=== PATIENT | female | born 1995 | race Caucasian/White ===

== ENCOUNTER 2017-01-06 21:53 | Emergency (ER) | payer BC ==
--- NOTE | 2017-01-06 22:21 | EDM.PDOC ---
ED HPI GENERAL MEDICAL PROBLEM - General Chief Complaint: PERSONNEL COORDINATOR Problem Stated Complaint: 9 WEEKS/CRAMPING Time Seen by Provider: 01/06/17 22:05 Source of Information: Reports: Patient History Limitations: Reports: No Limitations - History of Present Illness INITIAL COMMENTS - FREE TEXT/NARRATIVE: HISTORY AND PHYSICAL: History of present illness: [21-year-old female 010 now presents emergency department with report of mild vaginal spotting. Patient is 9 weeks 3 days her ultrasound done by PERSONNEL COORDINATOR doctor, Dr. Hdz. Patient states she feels she spitting frequently but has no fevers chills sweats or shaking chills. She denies discharge other than spotting. No abdominal pain. Patient reports occasional pelvic cramping now resolved. Review of systems: As per history of present illness and below otherwise all systems reviewed and negative. Past medical history: As per history of present illness and as reviewed below otherwise noncontributory. Surgical history: As per history of present illness and as reviewed below otherwise noncontributory. Social history: No reported history of drug or alcohol abuse. Family history: As per history of present illness and as reviewed below otherwise noncontributory. Physical exam: HEENT: Atraumatic, normocephalic, pupils reactive, negative for conjunctival pallor or scleral icterus, mucous membranes moist, throat clear, neck supple, nontender, trachea midline. Lungs: Clear to auscultation, breath sounds equal bilaterally, chest nontender. Heart: S1S2, regular, negative for clicks, rubs, or JVD. Abdomen: Soft, nondistended, nontender. Negative for masses or hepatosplenomegaly. Negative for costovertebral tenderness. Pelvis: Stable nontender. Pelvic exam done by MOE Soria with nurse Ibarra present. Genitourinary: Deferred. Rectal: Deferred. Extremities: Atraumatic, negative for cords or calf pain. Neurovascular unremarkable. Neuro: Awake, alert, oriented. Cranial nerves II through XII unremarkable. Cerebellum unremarkable. Motor and sensory unremarkable throughout. Exam nonfocal. Diagnostics: [Urinalysis negative. Urine test positive. Quantitative hCG greater than 100. Wet prep returns positive bacterial vaginosis] Therapeutics: [] Impression: [] Plan: [Signs and symptoms consistent with threatened miscarriage. Labs consistent with bacterial vaginosis. Patient aware to do pelvic rest and follow-up with OB/ [employer] doctor one day.] Return immediately for new severe or worsening symptoms Definitive disposition and diagnosis as appropriate pending reevaluation and review of above. Lower Abdomen Pain Score (Numeric/FACES): 9 - Related Data Allergies Allergy/AdvReac Type Severity Reaction Status Date / Time No Known Allergies Allergy Verified 01/06/17 22:06 Home Meds: Home Meds metroNIDAZOLE [Flagyl] 500 mg PO Q12H #14 tablet 01/07/17 [Rx] Past Medical History HEENT History: Reports: None Genitourinary History: Reports: None PERSONNEL COORDINATOR History: Reports: , Spontaneous Psychiatric History: Reports: Anxiety, Depression - Infectious Disease History Infectious Disease History: Reports: Chicken Pox - Past Surgical History HEENT Surgical History: Reports: Adenoidectomy, Tonsillectomy Social & Family History - Family History Family Medical History: Noncontributory - Tobacco Use Smoking Status *Q: Current Every Day Smoker Years of Tobacco use: 3 Packs/Tins Daily: 1 - Caffeine Use Caffeine Use: Reports: Soda Caffeine Use Comment: 5-6drinks/day - Recreational Drug Use Recreational Drug Use: No ED ROS GENERAL - Review of Systems Review Of Systems: See Below (History of present illness) ED EXAM, GENERAL - Physical Exam Exam: See Below (History of present illness) Course - Vital Signs Last Recorded V/S: Last Vital Signs Temp 36.6 C 01/07/17 02:06 Pulse 91 01/07/17 02:06 Resp 18 01/07/17 02:06 BP 116/65 01/07/17 02:06 Pulse Ox 99 01/07/17 02:06 - Orders/Labs/Meds Orders: Active Orders 24 hr Category Date Time Status CHLAMYDIA TRACHOMATIS/GC AMPLF Stat Lab 01/06/17 11:29 Received Labs: Laboratory Tests 01/06/17 01/06/17 01/07/17 Range/Units 22:24 22:24 00:09 HCG, Quant 886729.2 mIU/mL Urine Color YELLOW Urine Appearance CLEAR Urine pH 6.5 (5.0-8.0) Ur Specific [place] 1.020 (1.001-1.035) Urine Protein NEGATIVE (NEGATIVE) mg/dL Urine Glucose (UA) NEGATIVE (NEGATIVE) mg/dL Urine Ketones NEGATIVE (NEGATIVE) mg/dL Urine Occult Blood NEGATIVE (NEGATIVE) Urine Nitrite NEGATIVE (NEGATIVE) Urine Bilirubin NEGATIVE (NEGATIVE) Urine Urobilinogen 0.2 (<2.0) EU/dL Ur Leukocyte Esterase NEGATIVE (NEGATIVE) Urine RBC 20-25 (0-2/HPF) Urine WBC 0-1 (0-5/HPF) Ur Epithelial Cells OCCASIONAL (NONE-FEW) Urine Bacteria RARE (NEGATIVE) Dejah species DNA (NEGATIVE) Gardnerella DNA Probe Trichomonas DNA Probe (NEGATIVE) Blood Type A POSITIVE Antibody Screen NEGATIVE 01/07/17 Range/Units 00:38 HCG, Quant mIU/mL Urine Color Urine Appearance Urine pH (5.0-8.0) Ur Specific [place] (1.001-1.035) Urine Protein (NEGATIVE) mg/dL Urine Glucose (UA) (NEGATIVE) mg/dL Urine Ketones (NEGATIVE) mg/dL Urine Occult Blood (NEGATIVE) Urine Nitrite (NEGATIVE) Urine Bilirubin (NEGATIVE) Urine Urobilinogen (<2.0) EU/dL Ur Leukocyte Esterase (NEGATIVE) Urine RBC (0-2/HPF) Urine WBC (0-5/HPF) Ur Epithelial Cells (NONE-FEW) Urine Bacteria (NEGATIVE) Dejah species DNA NEGATIVE (NEGATIVE) Gardnerella DNA Probe POSITIVE Trichomonas DNA Probe NEGATIVE (NEGATIVE) Blood Type Antibody Screen Meds: Medications Discontinued Medications Generic Name Dose Route Start Last Admin Trade Name Giorgio PRN Reason Stop Dose Admin Metronidazole 500 mg 01/07/17 01:44 01/07/17 02:00 Metronidazole PO 01/07/17 01:45 500 mg ONETIME ONE Administration Departure - Departure Time of Disposition: 01:39 Disposition: Home, Self-Care 01 Condition: Good Clinical Impression: Threatened miscarriage in early , Bacterial vaginosis - Discharge Information Prescriptions: metroNIDAZOLE [Flagyl] 500 mg PO Q12H #14 tablet Instructions: Threatened Miscarriage, Bacterial Vaginosis, [id number] Referrals: Cathy Hdz MD [Primary Care Provider] - Forms: ED Department Discharge Additional Instructions: You have bleeding in early with a known intrauterine . Your blood type is Rh+. Her quantitative hCG is 109, 211 you have no active bleeding on exam. Analysis of your vaginal discharge suggest a diagnosis of bacterial vaginosis. This is a disruption of the normal bacteria in the vagina and requires an antibiotic to cure. Finish Flagyl as prescribed and follow up with your and your PERSONNEL COORDINATOR doctor in one to 2 days. Rest and drink by fluids. Don' t be sexually active. Keep yourself" pelvic rest "until cleared by your PERSONNEL COORDINATOR doctor. Return immediately for new severe or worsening symptoms specifically for severe or unrelenting vaginal bleeding - My Orders Last 24 Hours: My Active Orders 01/06/17 11:29 CHLAMYDIA TRACHOMATIS/GC AMPLF Stat - Assessment/Plan Last 24 Hours: My Active Orders 01/06/17 11:29 CHLAMYDIA TRACHOMATIS/GC AMPLF Stat
[2017-01-07] MEDS ORDERED: metroNIDAZOLE 250 MG Tab PO ONE (01:44)
[2017-01-07 02:07] VITALS: BP 116/65
== END 2017-01-07 02:00 | disposition home or self-care (01) ==
LOC: MW.ED 21:53
DX: O20.0 Threatened abortion (principal); N76.0 Acute vaginitis; F17.210 Nicotine dependence, cigarettes, uncomplicated; Z98.890 Other specified postprocedural states
CPT/HCPCS: 36415; 81001; 84702; 86850; 86900; 86901; 87480; 87491; 87510; 87591; 87660; 99284; A9270; 99283